=== PATIENT | female | born 1965 | race Caucasian/White ===

== ENCOUNTER → 2024-07-14 12:58 | Outpatient (REF) | payer BC, SELFPAY | LOC: RAD 12:58 | PROVIDERS: ATTENDING PHYSICIAN Student in an Organized Health Care Education/Training Program | DX: M54.2 Cervicalgia (principal); M54.12 Radiculopathy, cervical region; M79.642 Pain in left hand; M79.641 Pain in right hand | CPT/HCPCS: 72052; 73130 ==

== ENCOUNTER → 2024-07-22 08:15 | Outpatient (REF) | payer BC, SELFPAY | LOC: WDC 08:15 | PROVIDERS: ATTENDING PHYSICIAN Student in an Organized Health Care Education/Training Program | DX: Z12.31 Encounter for screening mammogram for malignant neoplasm of breast (principal) | CPT/HCPCS: 77063; 77067 ==